=== PATIENT | male | born 1950 | race Caucasian/White ===

== ENCOUNTER 2020-07-05 10:00 | Emergency (ER) | payer OTHER ==
[~2020-07-05] VITALS: Ht 167.6 cm; Wt 69.9 kg
[2020-07-05] MEDS ORDERED: ZESTRIL2.5 MG PO (10:07)
== END 2020-07-05 14:26 | disposition home or self-care (01) ==
LOC: ER 10:00
DX: S82.61XA Displaced fracture of lateral malleolus of right fibula, initial encounter for closed fracture (principal); W10.8XXA Fall (on) (from) other stairs and steps, initial encounter; Y93.89 Activity, other specified; Y92.018 Other place in single-family (private) house as the place of occurrence of the external cause; Y99.8 Other external cause status

== ENCOUNTER 2020-07-15 08:40 | Outpatient (CLI) | payer OTHER ==
[~2020-07-15 08:40] MED LIST: ZESTRIL2.5 MG PO
== END 2020-07-15 08:50 | disposition home or self-care (01) ==
LOC: RAD 08:40
PROVIDERS: ATTEND Orthopaedic Surgery
DX: S82.64XA Nondisplaced fracture of lateral malleolus of right fibula, initial encounter for closed fracture (principal)

== ENCOUNTER 2020-08-26 07:47 | Outpatient (CLI) | payer OTHER | END 2020-08-26 08:06 | disposition home or self-care (01) | LOC: RAD 07:47 | PROVIDERS: ATTEND Orthopaedic Surgery | DX: S82.64XD Nondisplaced fracture of lateral malleolus of right fibula, subsequent encounter for closed fracture with routine healing (principal) ==

== ENCOUNTER 2023-08-30 03:37 | Emergency (ER) | payer OTHER ==
[~2023-08-30] VITALS: Ht 167.6 cm; Wt 64.9 kg
[2023-08-30] MEDS ORDERED: ZESTRIL5 MG PO (03:54)
== END 2023-08-30 05:40 | disposition home or self-care (01) ==
LOC: ER 03:38
DX: T44.6X5A Adverse effect of alpha-adrenoreceptor antagonists, initial encounter (principal); I10 Essential (primary) hypertension